=== PATIENT | female | born 1975 | race Native Hawaiian/Other Pacific Islander ===

== ENCOUNTER 2019-06-29 07:10 | Day surgery (SDC) | payer BC ==
[2019-06-29] MEDS ORDERED: ONDANSETRON 4 MG/2 ML INJ IV PRN (07:34)
--- NOTE | 2019-06-29 07:35 | Anesthesia Day of Surgery ---
Anesthesia Day of Surgery - Day of Surgery Patient Examined: Yes Patient H&P Reviewed: Yes Patient is NPO: Yes
--- NOTE | 2019-06-29 07:38 | Anesthesia Consultation ---
Anesthesia Consult and Med Hx Date of service: 06/29/19 - Airway Anesthetic Teeth Evaluation: Chipped ROM Head & Neck: Adequate Mental/Hyoid Distance: Adequate Mallampati Class: Class III Intubation Access Assessment: Probably Good - Pre-Operative Health Status ASA Pre-Surgery Classification: ASA2 Proposed Anesthetic Plan: General - Pulmonary Hx Smoking: Yes - Central Nervous System Hx Psychiatric Problems: No - Other Systems Hx Cancer: No
[2019-06-29] MEDS ORDERED: LACTATED RINGERS 1,000 ML IV SCH (08:00)
[2019-06-29] MEDS: MIDAZOLAM 2 MG/2 ML INJ IV NR ×2 (08:45→09:49)
[2019-06-29] MEDS ORDERED: LIDOCAINE MPF (2%) 20 MG/1 ML VIAL 5 ML ONE (09:49)
[2019-06-29] MEDS ORDERED: fentaNYL 100 MCG/2 ML INJ ONE (09:49)
[2019-06-29] MEDS ORDERED: PROPOFOL 200 MG/20 ML VIAL IV ONE (09:49)
[2019-06-29] MEDS ORDERED: SODIUM CHLORIDE 0.9% IRRIG SOLN 3000 ML IR ONE (10:25)
[2019-06-29] MEDS ORDERED: dexAMETHasone 20 MG/5 ML VIAL ONE (10:47)
[2019-06-29] MEDS ORDERED: KETOROLAC 30 MG/1 ML INJ ONE (10:47)
[2019-06-29] MEDS ORDERED: ONDANSETRON 4 MG/2 ML INJ ONE (10:47)
--- NOTE | 2019-06-29 10:49 | Post Operative Note ---
Date of procedure: 06/29/19 Pre-op diagnosis: menorrhagia Post-op diagnosis: same Findings: Normal endometrial cavity. Both ostia were well visualized. No significant endometrial polyps or lesions. Uterus was sounded to 7 cm. Cavity length was 4.5 cm cavity width was also 4.5 cm. Procedure: D&C, hysteroscopy, NovaSure endometrial ablation Procedure: Patient taken to the operating room and prepped and draped in the usual fashion. Bladder was straight cathed for clear urine. Single-tooth tenaculum placed at lip of the cervix. Uterus was sounded. Cervix was adequately dilated for placement of a hysteroscope which was done without difficulty. Hysteroscopic findings noted above. Measurements for the NovaSure device was then made. Hysteroscope removed and a sharp curettage was performed until a good cry was noted throughout. NovaSure device was then placed. The cavity test passed and the ablation was performed with completion without difficulty. Single-tooth tenaculum and NovaSure device was removed. Good hemostasis noted and the procedure was concluded. Patient tolerated the procedure well. All instrument and lap counts were correct. Patient taken to the recovery room in stable condition. Anesthesia: GETA Surgeon: JUANIS BURTON Estimated blood loss: minimal Pathology: list ([facility] [place]) Specimen disposition: to lab Condition: stable Disposition: PACU
[2019-06-29] MEDS: HYDROmorphone 1 MG/1 ML INJ IV PRN ×2 (10:56→11:06)
[2019-06-29 11:26] VITALS: BP 124/75
--- NOTE | 2019-06-29 21:50 | Post Anesthesia Evaluation ---
- Post Anesthesia Evaluation Patient Participated: Yes Airway Patent: Yes Stable Respiratory Function: Yes Nausea/Vomiting: No Temp > 96.8F: Yes Pain Manageable: Yes Adequeate Hydration: Yes Anesthesia Complications: No Block Receding Appropriately: Not Applicable Patient on Ventilator: No
== END 2019-06-29 12:05 | disposition home or self-care (01) ==
LOC: OR 07:10
PROVIDERS: ATTEND Obstetrics & Gynecology
DX: N92.0 Excessive and frequent menstruation with regular cycle (principal); N85.8 Other specified noninflammatory disorders of uterus; F17.210 Nicotine dependence, cigarettes, uncomplicated; Z79.899 Other long term (current) drug therapy; Z98.890 Other specified postprocedural states; Z82.49 Family history of ischemic heart disease and other diseases of the circulatory system; Z83.3 Family history of diabetes mellitus
CPT/HCPCS: 58563; 81025; 88305; A4217; J1100; J1170; J1885; J2250; J2405; J2704; J3010; J7120